=== PATIENT | male | born 1955 | race African-American/Black ===

== ENCOUNTER 2016-11-01 05:31 | Day surgery (SDC) | payer OTHER ==
[2016-11-01] VITALS (17 sets, daily range): BP systolic 118–173; BP diastolic 70–91; PULSE 57–78; RESP 7–18; O2SAT 92–100
[~2016-11-01] VITALS: Ht 175.3 cm; Wt 98.3 kg
[~2016-11-01 05:31] MED LIST: ATOR20TA65 PO; LISI10TA PO; [UNRECOGNIZED DRUG - CODE] PO
[2016-11-01] MEDS ORDERED: fentaNYL-PF 50 mCg/mL 2 mL Inj ONE (05:32)
[2016-11-01] MEDS ORDERED: Neostigmine 1 mg/mL 5 mL Inj ONE (05:32)
[2016-11-01] MEDS ORDERED: Glycopyrrolate 0.2 mg/mL 5 mL Inj ONE (05:32)
[2016-11-01] MEDS ORDERED: Rocuronium 10 mg/mL 5 mL Inj ONE (05:32)
[2016-11-01] MEDS ORDERED: Propofol 10,000 mCg/mL 20 mL Inj ONE (05:32)
[2016-11-01] MEDS ORDERED: MetoCLOpramide 5 mg/mL 2 mL Inj ONE (05:32)
[2016-11-01] MEDS ORDERED: Ondansetron 2 mg/mL 2 mL Inj ONE (05:32)
[2016-11-01] MEDS ORDERED: Remifentanil 1 mg/3 mL Inj ONE (05:32)
[2016-11-01] MEDS: Lactated Ringer's 1,000 ML IV SCH ×3 (05:41→08:30)
[2016-11-01] MEDS ORDERED: CeFAZolin Inj 2 GM in IV Premix 1 EACH IV ONE (06:00)
[2016-11-01 06:29] LABS: BASOPHILS % (AUTO) 0.4 % (0-3); MONOCYTES % (AUTO) 8.1 % (4-12); Mean Corpuscular Hemoglobin 25.2 pg (27.0-35.0); Mean Corpuscular Volume 77.4 fL (81-100); NEUTROPHILS % (AUTO) 69.6 % (40-74); Platelet Count 179 bil/L (150-400)
[2016-11-01 06:49] LABS: INR 0.94 ratio
[2016-11-01] MEDS ORDERED: Bupivacaine-MPF 0.5% W/EPI 30 mL Inj INFILTRATE ONE (08:15)
[2016-11-01] MEDS ORDERED: Lactated Ringer's 500 ML IV PRN (08:33)
[2016-11-01] MEDS ORDERED: Lactated Ringer's 1,000 ML IV SCH (08:33)
[2016-11-01] MEDS ORDERED: Phenylephrine 10,000 mCg/mL Inj IVPUSH PRN (08:35)
[2016-11-01] MEDS ORDERED: EPHEDrine Sulfate 50 mg/mL Inj IVPUSH PRN (08:35)
[2016-11-01] MEDS ORDERED: MetoCLOpramide 5 mg/mL 2 mL Inj IVPUSH PRN ×2 (08:35→11:25)
[2016-11-01] MEDS ORDERED: Ondansetron 2 mg/mL 2 mL Inj IVPUSH PRN ×2 (08:35→11:25)
[2016-11-01] MEDS ORDERED: Atropine 0.4 mg/mL Inj IVPUSH PRN (08:35)
[2016-11-01] MEDS ORDERED: Labetalol 5 mg/mL 4 mL Inj IV PRN (08:35)
[2016-11-01] MEDS ORDERED: hydrALAZINE 20 mg/mL Inj IVPUSH PRN (08:35)
--- NOTE | 2016-11-01 08:35 | PCM.HPANE ---
Patient Data Surgeon Admitting Provider: Attending Provider:Chris Gill MD Primary Care Physician:Other,Physician Other Provider:Ron Mazariegos Anesthesia Reason for Visit Right Liver Mass Ht/WT & BMI Height (Feet): 5 Height (Inches): 9 Weight (Kilograms): 98.3 Body Mass Index 32.00 Allergies Coded Allergies: No Known Allergies (Verified Allergy, Unknown, 10/26/16) Past Anesthesia History Anesthesia History: Denies:: Abnormal Airway, Anesthesia Reactions, Difficult Intubation, Fam Anesthesia Reaction, Fam Malignant Hypertherm, Malignant Hyperthermia Diabetes History Hx Diabetes?: Yes Type of Diabetes: Type II Glycemic Control: Oral Medication Current Bedside Blood Glucose: 127 MRSA MRSA: No Medications Hypertension Medication: Yes (LISINOPRIL) Home Meds Incl Beta Anuj: No Reported Medications Metformin ER (Glumetza)500 Mg [id number] Mg PO BID 06/22/16 Lisinopril 10 Mg [id number] Mg PO DAILY Ref 0 06/22/16 Atorvastatin Calcium 20 Mg [id number] Mg PO DAILY Ref 0 04/16/15 History History of ENT Problems?: No HEENT History: Denies:: Abnormal Airway Cataracts Difficult Intubation Dysphagia Hearing Problem Sinus Problem Hx of Heart Problems?: Yes Cardiovascular History: Positive for:: Chest Pain (DURING CHEMO 08/2015) Edema Hypertension (HYPERLIPIDEMIA) Valvular 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,AR,TR) Denies:: AICD Atrial Fibrillation Cardiac Surgery Congestive Heart Failure Heart Murmur (ECHO 08/2015 EF 55-60% W/ HYPERMOBILE MASS RT [facility] ( [facility] [employer]?)) Irregular Heartbeat Pacemaker Rheumatic Fever Thrombophlebitis Hx of Respiratory Problem?: Yes Respiratory History: Denies:: Asthma COPD Cough Dyspnea Emphysema Hemoptysis Pneumonia Tuberculosis Use of C-PAP Machine (SNORES) Hx Neurologic Problems?: Yes Neurological History: Positive for:: Alzheimer's Disease (DX W/) Denies:: CVA Dementia Dizziness Headaches Multiple Sclerosis Parkinson's Disease Seizures Hx of GI Problems?: Yes Gastrointestinal History: Positive for:: Liver Disease (LIVER METS S/P LT LOBE WEDGE RESECTION RT LIVER MASS=CURRENT PROBLEM) Denies:: Cirrhosis Diverticulitis Gastroesphageal Reflux (HX DUODENAL POLYP) Heartburn Hepatitis Hiatal Hernia Rectal Bleeding (HX COLON POLYPS S/P RT HEMICOLECTOMY/LIVER BX FOR CA) Hx of Problems?: Yes Genitourinary History: Denies:: HX of Hemodialysis Kidney Stones Urinary Tract Infection Other Pertinent History: ED Male Hx: Denies:: Prostate Problems Scrotal Mass Testicular Surgery Skin History: Denies:: History Skin Disorders? (keloids on back ) Pressure Ulcers Hx Musculoskeletal Problems?: Yes Musculoskeletal History: Positive for:: Back Injury (chronic, not injury related) Denies:: Joint Replacement Musculoskeletal Trauma Hx of Psycho/Social Problems?: No Psycho Social History: Denies:: Anxiety Bipolar Disorder Hx Depression Hx Surgeries?: Yes (RT HEMICOLECTOMY/LIVER BX,LIVER WEDGE RESECTION,PORTACATH) Hx Any Other Health Problems?: Yes Other History: Positive for:: Cancer (COLON W/ LIVER METS) Hospitalization Denies:: Endocrine Disease Thyroid Disease History Blood Transfusions: Denies:: Blood Transfusions Hx Diabetes: YesBedside Blood Glucose: 127 Hx Alcohol Use: Yes (QUIT 2009)Hx Substance Use: No Smoking Status: Former Smoker Have You Smoked inLast 12 mo: No Stop/Bang S-Snoring: Do You Snore Loudly: Yes T-Tired: feel tired, fatigued: No O-Obsered: Observed not breath: No P-Blood Pressure: treated: Yes B- Body Mass Index > 35 kg/m2: No A- Age over 50: Yes N- Neck Large Circumference: No G- Gender Male: Yes ROMIE Total Score: 4 Risk Assessment Category Category 1A: Patient has history of documented sleep apnea, and HAS NOT received any narcotic, sedative or anesthesia administration during this stay. Category 1B: Patient has history of documented sleep apnea, and HAS received any narcotic , sedative or anesthesia administration during this stay Category 2: Patient has SUSPECTED Obstructive Sleep Apnea, and HAS received any narcotic , sedative or anesthesia administration during this stay. Category 3: Patient has SUSPECTED Obstructive Sleep Apnea and HAS NOT received narcotic, sedative or anesthesia administration during this stay. Category 4: Outpatient in Procedural Areas with known sleep apnea or who screen positive for High Risk via the STOP/BANG questionnaire. Exam Exam Vital Signs Vital Signs Date Time Temp Pulse Resp B/P Pulse Ox O2 Delivery O2 Flow Rate FiO2 11/01/16 06:00 36.0 57 16 140/80 98 Room Air General Appearance: Alert, Oriented X3, Cooperative, No Acute Distress HEENT/AIRWAY: MP 2, Neck Movement (FROM) Lungs: Clear to Auscultation, Normal Air Movement Heart: Exam Unremarkable, Regular Rate/Rhythm, No Murmurs/Rubs/Gallops Meds/Labs/Diagnostics Admission Meds Current Medications Lactated Ringer's (Lr) 1,000 ml @ 120 mls/hr Q8H20M IV Last administered on t 05:41; Start 11/01/16 at 05:00; Stop 11/01/16 at 13:19 Bedside Blood Glucose: 127 Labs Test 11/01/16 06:15 White Blood Count 5.3th/mm3 (3.8-10.1) Red Blood Count 4.92mil/mm3 (4.40-5.80) Hemoglobin 12.4g/dL (13.8-17.2) Hematocrit 38.1% (41.0-50.0) Mean Corpuscular Volume 77.4fL (81-100) Mean Corpuscular Hemoglobin 25.2pg (27.0-35.0) Mean Corpuscular Hemoglobin Concent 32.5% (32.0-37.0) Red Cell Distribution Width 13.5% (12.3-15.4) Platelet Count 179bil/L (150-400) Neutrophils (%) (Auto) 69.6% (40-74) Lymphocytes (%) (Auto) 18.1% (14-46) Monocytes (%) (Auto) 8.1% (4-12) Eosinophils (%) (Auto) 3.0% (0-5) Basophils (%) (Auto) 0.4% (0-3) Prothrombin Time 10.0sec (8.1-12.5) Prothromb Time International Ratio 0.94ratio Plan Impression Patient chart reviewed, patient interviewed and anesthestic plan with risks, benefits, and alternatives discussed, and informed consent obtained. NPO Status: 1930 10/31/16 ASA Physical Status: ASA3 Severe Disease (Colon cancer with liver mets) Anesthetic Support Modalities: Arterial Line (risks of arterial line including bleeding, infection, clot, loss of perfusion to hand discussed. AQA. Consent signed) Anesthetic Plan: GA Bene/Risks/Altern/Consents: Yes HP Complete Prior to Induction: Yes Hernan Nazario MD Nov 01, 2016 07:32
[2016-11-01] MEDS ORDERED: HYDROmorphone 0.5 mg/0.5 mL iSecure Syringe IVPUSH PRN (11:25)
--- NOTE | 2016-11-01 11:40 | PCM.SURGOP ---
Surgical Operative Report Date of Service: Nov 01, 2016 Pre Operative Diagnosis Right hepatic metastasis from colon cancer Post Operative Diagnosis Same Procedure: Laparoscopic right hepatic wedge resection Surgeon and Tracer Lathe Set Up Operator: Surgeon: Chris Gill MD Assistants: Zuleyma Bardales PA-C Indication for Procedure 61-year-old man who underwent a right hemicolectomy in December 2014 for T2 N1 right colon cancer. He was then found to have a hepatic metastasis in the left liver, and in February 2015, he underwent a laparoscopic left hepatic wedge resection. On follow-up, he was found to have a new 22 mm low-density focus in the right hepatic lobe posteriorly and inferiorly. CT-guided biopsy was nondiagnostic. A PET/CT showed a single focus of uptake corresponding to the radiographic lesion with an SUV of 7.3, suspicious for metastatic disease despite the negative biopsy. After discussion of risks and benefits, he agreed to proceed with laparoscopic right hepatic wedge resection. Findings: There were adhesions to the previous right upper abdominal transverse incision. The lesion was not visible upon inspection of the capsule of the liver. Initial wedge resection did not straight any palpable abnormality. A separate superior specimen was resected laparoscopically, which showed a very small lesion measuring approximately 5 mm in diameter. Frozen section was obtained, confirming adenocarcinoma consistent with colon cancer metastasis. This was at the deep margin of the resection, so a separate deep margin was obtained. Procedure Details After smooth induction of general endotracheal anesthesia, a right radial arterial catheter was placed. He was placed in the supine position with the right arm tucked, and was prepped and draped in wide sterile fashion. A procedural pause was performed according to the SCOAP checklist, and all were found to be in agreement. His previous infraumbilical curvilinear incision was reopened sharply. Dissection was carried down with electrocautery through the subcutaneous tissue until the midline fascia was incised vertically, and the peritoneal cavity was entered without difficulty. A 12 mm trocar was placed and pneumoperitoneum was established. Inspection revealed numerous adhesions to the previous right transverse upper abdominal scar. The camera was able to be passed around those adhesions and the liver was inspected. There were adhesions from his left lateral hepatic wedge resection, but the remainder of the liver was visible. There were no visible lesions on the surface of the capsule of the liver, and there was no puckering or indentation. The gallbladder was normal. The peritoneal surfaces were normal. Additional 5 mm ports were placed in the midline epigastrium, and 2 in the right lower quadrant under visualization. Using those ports, adhesio lysis was performed, taking down omental adhesions from the peritoneal surface of the right upper abdomen until the liver was able to be visualized. The patient was rolled up on his left side with the head up. Extensive inspection again did not reveal a lesion on the surface of the liver or any puckering. The right lateral attachments of the liver were taken down posteriorly to the level of the gallbladder, until the entire right lateral liver was mobile. Wedge resection was then planned based on the CT scan location of the lesion. The capsule of the liver was marked with cautery. Wedge resection was performed, extending approximately 5 cm superior from the inferior aspect of the right hepatic lobe. A 3-0 silk [id number]-[id number] suture was placed on the capsule of the liver for traction. Dissection was performed using the LigaSure device. The right hepatic wedge resection specimen was placed in an Endo Catch bag, and removed from the umbilical port site. It was evaluated on the back table. There is no obvious palpable lesion. A 10 blade scalpel was used to bread loaf the specimen, again not demonstrating an obvious metastasis. The specimen was labeled as right inferior hepatic wedge resection. Gloves were changed. I elected to take another specimen superior to that. Another 5 cm superiorly of hepatic parenchyma was marked on the capsule using electrocautery. Another 3-0 silk [id number]-tt-[id number] stay suture was placed through the capsule. Wedge resection again was performed using the LigaSure device. That specimen was put into an Endo Catch bag, and removed from the umbilical port site, and labeled as right superior hepatic wedge resection. It was oriented with a suture on the superior aspect. It was evaluated on the back table, and by breadloafing that specimen, a very small, approximately 5 mm firm lesion was identified. Frozen section was obtained. This confirmed metastatic adenocarcinoma, consistent with a colon cancer primary. This was at the deep margin of resection. Gloves were changed again. The specimen was then obtained using the LigaSure device from the medial and deep margin of resection from the superior specimen. That specimen was placed into an Endo Catch bag and removed from the umbilical port site. That specimen was oriented with suture, and passed off for permanent pathology. Gloves were changed again. Hemostasis was then achieved from the hepatic wedge resection site using the argon beam cream dipper. There was no evidence of ongoing bleeding or bile leak. The right upper quadrant was irrigated and suctioned. A 19 Fijian round DAVIDA drain was brought out through the right lateral incision, positioned adjacent to the hepatic resection, and secured to the skin with a 2- 0 nylon stitch. The remaining ports were removed under visualization, and pneumoperitoneum was released. The fascia of the umbilical port site was closed vertically using interrupted 0 Vicryl sutures. The skin incisions were closed with running 4-0 Monocryl subcuticular stitches. Steri-Strips and sterile dressings were applied. At the end of the case all needle and sponge counts were correct 2. The patient was awakened from anesthesia without difficulty, and taken to the recovery room in satisfactory condition, having tolerated the procedure well. Complications There were no periprocedural complications identified. Surgical Specimen Removed: Yes Specimen sent to Pathology: Yes Surgical Specimen description: Right inferior hepatic wedge resection. Right superior hepatic wedge resection. Deep and medial margin. Anesthetic Plan: GA Grafts, Implants: None Output, Estimated Blood Loss: 100 Blood Administration during jaime: No Drains: DAVIDA Drain #1 Catheters: None copies to: Edinson Pierson MD ; [facility] Chris Gill MD Nov 01, 2016 11:40
[2016-11-01] MEDS: HYDROmorphone 1 mg/mL Inj IVPUSH PRN ×3 (11:45→13:16)
[2016-11-01] MEDS: fentaNYL-PF 50 mCg/mL 2 mL Inj IVPUSH PRN ×2 (11:45→12:04)
--- NOTE | 2016-11-01 12:22 | PCM.ANEP1 ---
Post Anesthesia Phase 1 PACU Phase 1 Assessment Date of Service: Nov 01, 2016 Vital Signs Vital Signs Date Time Temp Pulse Resp B/P Pulse Ox O2 Delivery O2 Flow Rate FiO2 11/01/16 12:02 63 9 157/79 100 Room Air 11/01/16 11:55 67 11 154/75 100 Room Air 11/01/16 11:45 60 10 139/80 100 Simple Mask 10 11/01/16 11:40 61 8 173/91 100 Simple Mask 10 11/01/16 11:35 60 7 169/84 100 Simple Mask 10 11/01/16 11:30 60 10 164/87 100 Simple Mask 10 11/01/16 11:25 36.4 63 13 163/88 100 Simple Mask 10 11/01/16 06:00 36.0 57 16 140/80 98 Room Air Anesthetic Administered: GA Level of Alertness: Awake, talking QUINN's with Equal Strength: Yes Pain: No Nausea or Vomiting: No Oxygen Delivery: Room Air Lungs: Clear to Auscultation, Normal Air Movement Dermatome Level: Full Sensation Hernan Nazario MD Nov 01, 2016 12:22
--- NOTE | 2016-11-01 12:22 | PCM.ANEP2 ---
Post Anesthesia Evaluation ASA/CMS Post Anesthesia VS in Patient's Normal Range?: Yes Resp Stable; Airway Patent?: Yes CV Function & Hydration Stable: Yes Mental Status Recovered?: Yes Pain control Satisfactory?: Yes N/V Control Satisfactory?: Yes Hernan Nazario MD Nov 01, 2016 12:22
[2016-11-01] MEDS ORDERED: Glucose 40% Oral Gel 15 Gm Tube PO PRN (15:00)
[2016-11-01] MEDS: Dextrose 5% Lactated Ringer's 1,000 ML IV SCH ×2 (16:18→23:53)
[2016-11-01] MEDS: oxyCODONE-Acetamin 5-325 mg Tablet PO PRN ×3 (16:24→21:07)
[2016-11-01] MEDS: Insulin LISPRO 300 Unit/3 mL Inj SUBQ SCH ×2 (18:36→21:33)
--- NOTE | 2016-11-01 19:55 | NUR ---
Arrival to Floor Patient arrived to floor from PACU alert and oriented. Ordered IV fluids hung. Lap sites CDI, suction applied to DAVIDA drain, sanguinous fluid noted. Patient denies excessive pain. Shortly after arrival to floor patient stated he needed to urinate and ambulated to the bathroom. Upon arriving back in bed patient stated he felt somewhat nauseous, which passed shortly thereafter without medication administration. Care is ongoing.
[2016-11-01] MEDS: metFORMIN ER 500 mg ER24 Tablet PO SCH (21:23)
[2016-11-02] MEDS: oxyCODONE-Acetamin 5-325 mg Tablet PO PRN ×4 (00:54→11:58)
[2016-11-02 00:55] VITALS: BP 146/80; PULSE 75; RESP 16; O2SAT 94
--- NOTE | 2016-11-02 05:58 | NUR ---
activity/pain pt has been ambulating to the bathroom SBA. steady on his feet. he has complained of pain in his R side 7/10 in intensity. he has been taking (2) percocet 5-325mg every 3-4hrs. and says it is effectively controlling his pain. care continues.
[2016-11-02 06:00] VITALS: BP 164/85; PULSE 68; RESP 18; O2SAT 92
[2016-11-02 06:03] LABS: BASOPHILS % (AUTO) 0.2 % (0-3); EOSINOPHILS % (AUTO) 1.4 % (0-5); Mean Corpuscular Hemoglobin 25.2 pg (27.0-35.0); Mean Corpuscular Volume 78.9 fL (81-100); NEUTROPHILS % (AUTO) 74.4 % (40-74); Platelet Count 159 bil/L (150-400)
--- NOTE | 2016-11-02 07:02 | PCM.DISURG ---
Surgical Discharge Instruction Date of Service Nov 02, 2016 Dates of Hospitalization Date of Hospital Admission Providers Admitting Physician: Primary Care Physician: Other,Physician Attending Physician: Chirs Gill MD Discharge Diagnosis Discharge Diagnosis liver metastasis from colon cancer, diabetes mellitus Post Operative diagnosis Same Diet Discharge Diet: Diabetic Activity Discharge Activity-General: No lifting >15 pounds for 2 weeks Dressing and Incisional Care Dressing Care: Allow Steri Stripes to fall off, Remove outer dressing after 24 hrs Hygiene: May shower Follow Up Plan Follow Up Plan in the [facility] postop clinic in 10-14 days Call your provider for: Fever (over 101.5F), Vomiting, Discharge @ incision, pus discharge Chris Gill MD Nov 02, 2016 07:02
[2016-11-02] MEDS: Insulin LISPRO 300 Unit/3 mL Inj SUBQ SCH (08:00)
[2016-11-02] MEDS: metFORMIN ER 500 mg ER24 Tablet PO SCH (08:20)
--- NOTE | 2016-11-02 09:12 | NUR ---
Social Work Discharge Planning: Order for discharge acknowledged. Patient is a 61 year old male admitted under [facility] for right liver mass. Patient payer as Jair Joaquin. Patient emergency contact as Yu, . Patient ambulating and independent with needs. No anticipated discharge needs identified at this time. SW will continue to follow if needs arise. PLAN: Home with , via POV, pending clinical course Johanna ASCENCIO Addendum: 11/02/16 at 0928 by PRISCILA CHAUDHARY Patient states PCP as MD Aquilino Perez
[2016-11-02 10:02] VITALS: BP 144/77; PULSE 90; RESP 18; O2SAT 90
--- NOTE | 2016-11-02 11:47 | PROG NOTE ---
[address] [address] PROGRESS NOTE PATIENT: SKYE GODINEZ : 1955 MR#: [id number] ADMIT: 11/01/2016 JOB ID: [id number] DATE: 11/02/2016 SUBJECTIVE: The patient is seen in followup. He had a good night overnight with no acute events. He is urinating without difficulty. He has no nausea, and tolerated some solid food. His pain is well controlled. He is not passing flatus. OBJECTIVE: Temperature 36.9, pulse 68, blood pressure 164/85, saturation 92% on room air. General: He is resting in bed, in no acute distress. His abdomen is mildly distended but soft. His incisions are clean with no erythema. DAVIDA drain is bloody, output overnight was 30 cc. LABORATORIES: White count is 6.6, hematocrit 34.1, platelets 159. Creatinine 0.94, glucose 138. Total bilirubin 0.4, AST 78, ALT 111, alk phosphatase 51. ASSESSMENT AND PLAN: A 61-year-old man, status post laparoscopic right hepatic wedge resection for metastasis from colon cancer. He is doing well clinically. His DAVIDA drain was removed this morning. He can be discharged to home today. He will follow up in Surgery Clinic for a wound check in two weeks. He should avoid lifting anything over 15 pounds. I will call him when pathology results are available.
--- NOTE | 2016-11-02 13:03 | NUR ---
Discharge Pt discharging home via private vehicle with his . All belongings accompanying pt. Port de-accessed by IVT; DAVIDA drain removed by Dr. Gill and dressing replaced by RN prior to departing with gauze and Tegaderm. Pt aware to schedule follow up appointment in 10-14 days. Pt initially wanted only one percocet for pain but after changing and getting ready he requested 2nd tablet, which was given. Pt leaving with no questions and eager to be home.
--- NOTE | 2016-11-02 13:15 | PCM.DC.SUR ---
Discharge Summary Date of Service: Date of Hospital Admission: 11/01/2016 Date of Operation(s): 11/01/2016 Date of Discharge: Nov 02, 2016 at 12:00 Diagnosis at Time of Discharge Primary diagnoses: Liver metastasis from colon cancer Other diagnoses: Diabetes Problems: Operation Laparoscopic right hepatic wedge resection Brief History and Physical: 61-year-old man who underwent a right hemicolectomy in December 2014 for T2 N1 right colon cancer. He was then found to have a hepatic metastasis in the left liver, and in February 2015, he underwent a laparoscopic left hepatic wedge resection. On follow-up, he was found to have a new 22 mm low-density focus in the right hepatic lobe posteriorly and inferiorly. CT-guided biopsy was nondiagnostic. A PET/CT showed a single focus of uptake corresponding to the radiographic lesion with an SUV of 7.3, suspicious for metastatic disease despite the negative biopsy. After discussion of risks and benefits, he agreed to proceed with laparoscopic right hepatic wedge resection. Consultants: None. Hospital Course: The patient was admitted and taken to the operating room on 11/01/2016 and underwent the above procedure. He tolerated the procedure well and there were no intraoperative complications. On his first postsurgical day, the patient was seen by Dr. Chris Gill: SUBJECTIVE: The patient is seen in followup. He had a good night overnight with no acute events. He is urinating without difficulty. He has no nausea, and tolerated some solid food. His pain is well controlled. He is not passing flatus. OBJECTIVE: Temperature 36.9, pulse 68, blood pressure 164/85, saturation 92% on room air. General: He is resting in bed, in no acute distress. His abdomen is mildly distended but soft. His incisions are clean with no erythema. DAVIDA drain is bloody, output overnight was 30 cc. LABORATORIES: White count is 6.6, hematocrit 34.1, platelets 159. Creatinine 0.94, glucose 138. Total bilirubin 0.4, AST 78, ALT 111, alk phosphatase 51. ASSESSMENT AND PLAN: A 61-year-old man, status post laparoscopic right hepatic wedge resection for metastasis from colon cancer. He is doing well clinically. His DAVIDA drain was removed this morning. He can be discharged to home today. He will follow up in Surgery Clinic for a wound check in two weeks. He should avoid lifting anything over 15 pounds. I will call him when pathology results are available. The patient was discharged home. Pathology: Pending at time of discharge. Disposition: The patient was discharged home. He had no difficulty voiding. He had no nausea and was tolerating solid food. Pain was well controlled. He was afebrile and hemodynamically stable. Follow-up Plan: Follow-up with [facility] postop clinic in 10-14 days. Atorvastatin Calcium (Atorvastatin Calcium) 20 Mg Tablet 20 MG PO DAILY ( Reported) Lisinopril (Lisinopril) 10 Mg Tablet 10 MG PO DAILY (Reported) Metformin ER (Glumetza) 500 Mg Tablet 500 MG PO BID (Reported) copies to: Edinson Pierson MD; Funmilayo Rolle Danielle B PA-C Nov 02, 2016 13:15
[2016-11-11] MEDS ORDERED: OXYC5TAB72 PO (11:51)
== END 2016-11-02 12:00 | disposition home or self-care (01) ==
LOC: SAS 05:31 → OSC 15:48 → SAS 11-02 12:00
PROVIDERS: ATTEND Student in an Organized Health Care Education/Training Program
DX: C78.7 Secondary malignant neoplasm of liver and intrahepatic bile duct (principal); Z85.038 Personal history of other malignant neoplasm of large intestine; I10 Essential (primary) hypertension; E11.9 Type 2 diabetes mellitus without complications
CPT/HCPCS: 36415; 47379; 80053; 85025; 85610; 94640; J0690; J1170; J1815; J2250; J2270; J2405; J2710; J2765; J7120

== ENCOUNTER 2017-05-19 07:46 | Day surgery (SDC) | payer OTHER ==
[~2017-05-19] VITALS: Ht 175.3 cm; Wt 97.5 kg
[~2017-05-19 07:46] MED LIST changes: +0.9% Sodium Chloride 1,000 ML IV SCH; +Sodium Chloride LOK Flush 10 mL Syringe IV PRN; +fentaNYL-PF 50 mCg/mL 2 mL Inj IVPUSH PRN
[2017-05-19 08:30] VITALS: BP 147/77; PULSE 51; RESP 12; O2SAT 99
[2017-05-19 09:51] VITALS: BP 113/66; PULSE 59; RESP 13; O2SAT 97
[2017-05-19 10:00] VITALS: BP 115/62; PULSE 55; RESP 16; O2SAT 94
[2017-05-19 10:21] VITALS: BP 125/76; PULSE 57; RESP 12; O2SAT 99
--- NOTE | 2017-05-19 14:38 | ENDO ---
[address] [address] ENDOSCOPY PROCEDURE PATIENT: SKYE GODINEZ : 1955 MR#: [id number] ADMIT: 05/19/2017 JOB ID: [id number] PROCEDURE: Colonoscopy. INDICATION: Patient with a history of colon cancer with history of metastatic disease to the liver for which he has undergone two liver resections. The patient's ASA classification is two. Mallampati score is two. MEDICATIONS: Versed 3 mg, Fentanyl 75 mcg. INSTRUMENT USED: PCFH-190DL PREPARATION QUALITY: Good. PROCEDURAL DETAILS: After informed consent was obtained, the patient was brought to the GI suite, where he was placed on oxygen via nasal cannula and monitored with continuous pulse oximeter, telemetry, and blood pressure monitoring. A time-out was performed. Then, he was placed in a left lateral decubitus position and medications were administered for sedation. Digital rectal exam was performed and was unremarkable. The colonoscope was then inserted into the rectum and advanced under direct visualization to the ileocolic anastomosis. Once the anastomosis was reached, the colonoscope was withdrawn back into the rectum. Mucosa and lumen were examined. In the rectum, retroflexion was performed. Following retroflexion, remaining air in the rectum was suctioned, and procedure was completed. FINDINGS: 1. In the transverse colon, there is approximately 4 mm sessile polyp that was removed with cold snare. 2. In the descending colon, there was a 4 mm sessile polyp that was removed with a cold snare. IMPRESSION: 1. Transverse colon polyp. 2. Descending colon polyp. 3. Surgical changes consistent with ileocolic anastomosis. RECOMMENDATIONS: Repeat colonoscopy in one year. COMPLICATIONS: None. ESTIMATED BLOOD LOSS: Less than 5 mL cc: Funmilayo Rolle D.O., [facility]
--- NOTE | 2017-05-24 09:40 | PATH ---
SURGICAL PATHOLOGY Attending Physician:Elie Balbuena CASE STATUS: Signed Out PATIENT NAME: SKYE GODINEZ PID: [id number] : 1955 DATE COLLECTED:05/19/2017 16:58 SPECIMEN: 1: Colon, Polyp 2: Colon, Polyp CLINICAL HISTORY: 1). TRANSVERSE POLYP X1 2). DESCENDING POLYP X1 FINAL DIAGNOSIS: 1.TRANSVERSE COLON POLYP, BIOPSY: COLONIC MUCOSA WITH NO DIAGNOSTIC ABNORMALITY. Negative for serrated lesion, adenoma, dysplasia and malignancy. 2.DESCENDING COLON POLYP, BIOPSY: TUBULAR ADENOMA. ICD10 D12.6 GROSS DESCRIPTION: The specimen is received in two formalin filled containers labeled with the patient's name. 1). The specimen is labeled "transv" and consists of 2 portions of tissue which aggregate to 0.3 x 0.3 x 0.2 CM. The specimen is entirely submitted in cassette 1A. 2). The specimen is labeled "desc" and consists of a 0.3 x 0.3 x 0.2 CM portion of tissue which is entirely submitted in cassette 2A. 05/19/2017DC MICRO DESCRIPTION: See diagnosis. ICD-9 CODES: CPT CODES: 1: 11155 2: 46083 Electronically Signed Out Fawad Howell MD, PhD [facility], [place] [address] Technical component performed at [facility], [facility] [address], [place], [address]
== END 2017-05-19 23:59 | disposition home or self-care (01) ==
LOC: END 07:46
PROVIDERS: ATTEND Internal Medicine Gastroenterology
DX: Z12.11 Encounter for screening for malignant neoplasm of colon (principal); D12.4 Benign neoplasm of descending colon; K63.5 Polyp of colon; K63.89 Other specified diseases of intestine; R16.0 Hepatomegaly, not elsewhere classified; Z85.038 Personal history of other malignant neoplasm of large intestine